=== PATIENT | male | born 1975 | race Caucasian/White ===

== ENCOUNTER 2020-12-09 19:32 | Inpatient (IN) | payer MEDICAID ==
[2020-12-09] VITALS (7 sets, daily range): BP systolic 102–131; BP diastolic 59–85
[~2020-12-09] VITALS: Ht 180.3 cm; Wt 79.5 kg
--- NOTE | 2020-12-09 12:11 | NUR ---
PT STARTED WAKING UP AND ORAL AIRWAY REMOVED, MOVING EXT X 4, DENIES PAIN.
[2020-12-09] MEDS ORDERED: normal saline 1000ML IV soln IVB ONE (20:00)
[2020-12-09] MEDS ORDERED: ondansetron/PF 4mg/2ml inj IV ONE (20:00)
[2020-12-09] MEDS ORDERED: morphine 4 MG/ML inj SYRINge IV ONE (20:00)
[2020-12-09] MEDS ORDERED: normal saline 1000ml 1,000 ML IV ONE (20:00)
--- NOTE | 2020-12-09 20:42 | NUR ---
GAVE REPORT TO COIL MAKER. PT WILL BE PLACED IN GOWN AND OR TECH WILL BE TAKING SOON
[2020-12-09] MEDS ORDERED: BUPIVAcaine/PF 2.5 mg/ml (0.25%) 30ml vial ONE (20:48)
[2020-12-09] MEDS ORDERED: temazepam 15mg capsule PO PRN (21:00)
[2020-12-09] MEDS ORDERED: morphine 4 MG/ML inj SYRINge IV PRN (21:05)
[2020-12-09] MEDS ORDERED: proCHLORperazine 10 MG/2 ml inj IV PRN (21:05)
[2020-12-09] MEDS ORDERED: morphine 2 MG/ML inj. syringe IV PRN ×3 (21:05→21:45)
[2020-12-09] MEDS ORDERED: ondansetron/PF 4mg/2ml inj IV PRN ×3 (21:05→22:45)
[2020-12-09] MEDS ORDERED: ringers solution, lacted 1,000 ML IV SCH (21:05)
[2020-12-09] MEDS ORDERED: meperidine/PF 25mg/ml syringe IV PRN ×3 (21:05)
[2020-12-09] MEDS ORDERED: fentaNYL/PF 50MCG/1 ML 2ML syringe ONE (21:25)
[2020-12-09] MEDS ORDERED: midazolam 1 mg/ML 2ml injection ONE (21:25)
[2020-12-09] MEDS ORDERED: LIDOcaine 2% (20mg/ml) 5ml vial ONE (21:26)
[2020-12-09] MEDS ORDERED: rocuronium 10mg/ml inj IV ONE (21:26)
[2020-12-09] MEDS ORDERED: propofol inj 20 ML IV ONE (21:26)
[2020-12-09] MEDS ORDERED: ondansetron/PF 4mg/2ml inj ONE (21:34)
[2020-12-09] MEDS ORDERED: potassium Cl 40MEQ/1/2NS 520ml 520 ML IV PRN ×2 (21:45)
[2020-12-09] MEDS ORDERED: magnesium 4gm in 100ml NS 100 ML IV PRN (21:45)
[2020-12-09] MEDS: normal saline 1000ml 1,000 ML IV SCH (21:45)
[2020-12-09] MEDS ORDERED: acetaminophen 325mg tablet PO PRN ×2 (21:45)
[2020-12-09] MEDS ORDERED: potassium Cl 20 mEq SR tablet PO PRN ×2 (21:45)
[2020-12-09] MEDS ORDERED: HYDROcodone/acetaminophen 5mg/325mg tablet PO PRN (21:45)
[2020-12-09] MEDS ORDERED: magnesium Cl slow-release 64mg tablet PO PRN (21:45)
[2020-12-09] MEDS ORDERED: magnesium 2GM in 50ml NS 50 ML IV PRN (21:45)
[2020-12-09] MEDS ORDERED: HYDROcodone/acetaminophen 10/325mg tab PO PRN ×2 (21:45→22:45)
[2020-12-09] MEDS ORDERED: mag hydrox/Alum hydrox/simeth 30ml oral suspension PO PRN (21:45)
[2020-12-09] MEDS ORDERED: magnesium hydroxide 30ml (MOM) UD suspension PO PRN (21:45)
[2020-12-09] MEDS ORDERED: meperidine/PF 25mg/ml syringe ONE (21:56)
[2020-12-09] MEDS: potassium CL 20mEq in D5-1/2NS 1,000 ML IV SCH (22:45)
--- NOTE | 2020-12-09 22:56 | NUR ---
Received from OR via , accompanied by Anesthesiologist DR PALMER and report given by Anesthesiolgist. PT IS SLEEPING WITH REGULAR RESPIRATIONS WITH ORAL AIRWAY IN PLACE, NOT ROUSING TO VOICE, SKIN WARM AND PINK, 20G LEFT AC WITH LR 100ML/HR, ABD HAS 3 BA'S CD, SCD'S, VSS.
--- NOTE | 2020-12-09 23:26 | NUR ---
Report called to receiving nurse. Transferred via BED Belongings . Special Issues communicated to receiving nurse MAGALYS RN. PT WAKES TO VOICE, SKIN WARM AND PINK, MOVING EXT X 4, PIV PATENT, SCD'S NO C/O PAIN,VSS, PT MEETS DISCHARGE CRITERA. [facility]SP[facility] TO [facility] AND ALERTED KLARISSA THAT PT HAD ARRIVED IN ROOM, OXYGEN PLACED ON PT, SCD'S ON, CALL LIGHT GIVEN TO PT AND BED LOWERED.
[2020-12-10] VITALS (9 sets, daily range): BP systolic 100–127; BP diastolic 62–80
[2020-12-10] MEDS ORDERED: piperacillin/tazo 3.375gm/50ml 50 ML IV SCH
[2020-12-10] MEDS: piperacillin/tazo 4.5gm/100ml 100 ML IV SCH ×2 (00:03→07:34)
[2020-12-10] MEDS: HYDROmorphone inj. 0.5 MG/0.5 ML DISP.SYRIN IV PRN ×3 (04:12→08:53)
--- NOTE | 2020-12-10 06:28 | NUR ---
Problems reprioritized. Patient report given, questions answered & plan of care reviewed with KOSTAS Quintero.
--- NOTE | 2020-12-10 06:38 | NUR ---
Patient in room [facility]. I have received report from Yomaira KENYON and had the opportunity to ask questions and assume patient care. Addendum: 12/10/20 at 0640 by Ingrid Rojo RN Patient in room NATE 349. I have received report from Jessika Espinosa RN and had the opportunity to ask questions and assume patient care.
[2020-12-10 06:52] LABS: BASOPHILS % (AUTO) 0 % (0-1); EOSINOPHILS % (AUTO) 0 % (0-6); HEMOGLOBIN 16.2 g/dl (14.0-17.9); LYMPHOCYTES % (AUTO) 5.7 % (21-51); MEAN CORPUSCULAR HEMOGLOBIN 32.5 PG (27.0-31.0); MEAN CORPUSCULAR HGB CONC 33.7 g/dL (33.0-36.5); MEAN CORPUSCULAR VOLUME 96.2 FL (78-98); MEAN PLATELET VOLUME 9.8 FL (7.4-10.4); MONOCYTES # (AUTO) 0.4 X10'3 (0-0.9); MONOCYTES % (AUTO) 2.5 % (2-12); NEUTROPHILS # (AUTO) 16.3 X10'3 (1.8-7.7); NEUTROPHILS % (AUTO) 91.8 % (42-75); PLATELET COUNT 167 X10'3 (140-440); RED BLOOD COUNT 4.99 X10'6 (4.70-6.10); RED CELL DISTRIBUTION WIDTH 13.4 % (11.5-14.5); WHITE BLOOD COUNT 17.8 X10'3 (4.5-11.0)
[2020-12-10 07:31] LABS: ALANINE AMINOTRANSFERASE 22 U/L (12-78); ALBUMIN 3.6 G/DL (3.4-5.0); ALBUMIN/GLOBULIN RATIO 1.1 (1.1-1.5); ALKALINE PHOSPHATASE 104 IU/L (46-116); ANION GAP 12 (8-16); ASPARTATE AMINO TRANSFERASE 20 U/L (10-37); BLOOD UREA NITROGEN 13 MG/DL (7-18); BUN/CREATININE RATIO 11.8 (5.4-32.0); CALCIUM 8.7 MG/DL (8.5-10.1); CHLORIDE 105 MMOL/L (99-107); GLUCOSE 147 MG/DL (70-104); POTASSIUM 4.1 MMOL/L (3.5-5.1); SODIUM 140 MMOL/L (135-145); TOTAL CARBON DIOXIDE 23.2 MMOL/L (24-32); eGFR 73 ML/MIN
[2020-12-10] MEDS: potassium CL 20mEq in D5-1/2NS 1,000 ML IV SCH (07:43)
[2020-12-10] MEDS: normal saline 1000ml 1,000 ML IV SCH (07:45)
[2020-12-10] MEDS ORDERED: heparin, porcine 5000 units/ml vial SQ SCH (08:00)
[2020-12-10] MEDS ORDERED: K and/or MAG REPLACEMENT MC SCH (08:00)
[2020-12-10] MEDS ORDERED: oxyCODONE/APAP 10/325mg tablet PO PRN (10:35)
[2020-12-10] MEDS ORDERED: oxyCODONE/APAP 5-325mg tablet PO PRN (10:35)
[2020-12-10] MEDS ORDERED: IBUP-1985 PO (12:00)
[2020-12-10] MEDS ORDERED: OXYC-150 PO (14:27)
--- NOTE | 2020-12-10 15:53 | NUR ---
patient given percocet with mod relief. seen by Dr haddad ok to DC home if tolerates regular diet. patient ambulated x3 which helped very much with gas pain. Able to pass gas and stated his pain had decreased to 4-5/10.Seen by Dr Cooper. Discharged home with all Dc instructions patient friend here to take home to [place] . MAHIN. ying CDI
[2020-12-10] MEDS ORDERED: lactobacillus rhamnosus 10,000 MMU CELLS/CAPSULE PO SCH (20:00)
== END 2020-12-10 15:21 | disposition home or self-care (01) | DRG 233 ==
LOC: ER 19:33 → PACU 21:43 → SUR 3N 23:40
PROVIDERS: ADMIT Surgery; ATTEND Internal Medicine
PROC: 8E0W4CZ Robotic Assisted Procedure of Trunk Region, Percutaneous Endoscopic Approach (ICD-10-PCS; 2020-12-09)
PROC: 0DTJ4ZZ Resection of Appendix, Percutaneous Endoscopic Approach (ICD-10-PCS; principal; 2020-12-09 21:20)
DX: K35.30 Acute appendicitis with localized peritonitis, without perforation or gangrene (principal); R18.8 Other ascites; F12.90 Cannabis use, unspecified, uncomplicated; F17.210 Nicotine dependence, cigarettes, uncomplicated; Z87.442 Personal history of urinary calculi
CPT/HCPCS: 36415; 80053; 83605; 83735; 85025; 87040; 87081; 99285; A4215; A4618; G0378; J1170; J1644; J2001; J2175; J2250; J2405; J2543; J2704; J3010; J3480; J3490